=== PATIENT | male | born 1990 | race Caucasian/White ===

== ENCOUNTER 2021-08-07 13:02 | Emergency (ER) | payer OTHER ==
[~2021-08-07] VITALS: Ht 180.3 cm; Wt 81.2 kg
[2021-08-07 13:43] VITALS: BP 123/83
[2021-08-07] MEDS ORDERED: ACET-10509 PO (14:28)
[2021-08-07] MEDS ORDERED: SULF-59 PO (14:28)
--- NOTE | 2021-08-07 15:49 | NUR ---
Patient discharged with v/s stable. Written and verbal after care instructions given FOR CELLULITIS and explained. Patient alert, oriented and verbalized understanding of instructions. Ambulatory with steady gait. All questions addressed prior to discharge. ID band removed. Patient advised to follow up with PMD. Rx of TYNENOOL AND BACTRIM given. Patient educated on indication of medication including possible reaction and side effects. Opportunity to ask questions provided and answered.
[2021-08-07 15:55] VITALS: BP 123/83
--- NOTE | 2021-08-07 15:55 | NUR ---
NO COMPLETE ASSESSMENTS, NO NURSING INTERVENTIONS.
== END 2021-08-07 15:49 | disposition home or self-care (01) ==
LOC: MED 13:02
DX: L02.413 Cutaneous abscess of right upper limb (principal); F17.210 Nicotine dependence, cigarettes, uncomplicated; F12.10 Cannabis abuse, uncomplicated
CPT/HCPCS: 99283

== ENCOUNTER 2021-08-08 21:11 | Emergency (ER) | payer OTHER ==
[~2021-08-08] VITALS: Ht 180.3 cm; Wt 81.6 kg
[~2021-08-08 21:11] MED LIST: ACET-10509 PO; SULF-59 PO
[2021-08-08 21:45] VITALS: BP 160/90
--- NOTE | 2021-08-08 21:48 | NUR ---
to lobby a/w bed ambulatory
[2021-08-08] MEDS ORDERED: VANCOMYCIN 1,000 MG in DEXTROSE 5% 250 ML IV ONE (22:45)
[2021-08-08] MEDS ORDERED: LIDOCAINE/EPI 1% 1:100000 20 ML VIAL INJ ONE ×2 (23:14→23:15)
[2021-08-09] MEDS ORDERED: KETOROLAC 30 MG/ML VIAL IVP ONE (00:05)
[2021-08-09] MEDS ORDERED: VANCOMYCIN 1,000 MG VIAL ONE (00:11)
[2021-08-09 01:39] VITALS: BP 160/90
== END 2021-08-09 01:39 | disposition home or self-care (01) ==
LOC: MED 21:11
DX: L03.113 Cellulitis of right upper limb (principal); F15.10 Other stimulant abuse, uncomplicated; F17.210 Nicotine dependence, cigarettes, uncomplicated
CPT/HCPCS: 10060; 36415; 87040; 96374; 99283; J1885; J2001; J3370

== ENCOUNTER 2021-08-09 09:47 | Emergency (ER) | payer OTHER ==
[~2021-08-09] VITALS: Ht 180.3 cm; Wt 86.2 kg
[2021-08-09 10:00] VITALS: BP 157/96
--- NOTE | 2021-08-09 10:05 | NUR ---
BIB SELF FOR RECHECK. SEEN HERE 08/08/21 FOR MRSA INFECTION.C/O R10/10 WRIST PAIN X 3 DAYS. PMH: METH USES.
[2021-08-09] MEDS ORDERED: HYDROcodone/APAP 5/325 MG 1 TAB TAB PO ONE (10:40)
[2021-08-09] MEDS ORDERED: VANCOMYCIN 1,000 MG in DEXTROSE 5% 250 ML IV ONE (10:40)
[2021-08-09] MEDS ORDERED: VANCOMYCIN 1,000 MG VIAL ONE (10:49)
--- NOTE | 2021-08-09 12:50 | NUR ---
Patient discharged with v/s stable. Written and verbal after care instructions given and explained. Patient verbalized understanding. Ambulatory with steady gait. All questions addressed prior to discharge. Advised to follow up with PMD.
== END 2021-08-09 12:50 | disposition home or self-care (01) ==
LOC: MED 09:47
DX: L03.113 Cellulitis of right upper limb (principal); F17.200 Nicotine dependence, unspecified, uncomplicated; Z79.899 Other long term (current) drug therapy; Z71.6 Tobacco abuse counseling
CPT/HCPCS: 10060; 96365; 99284; J3370